=== PATIENT | male | born 1995 | race African-American/Black ===

== ENCOUNTER 2020-10-11 18:19 | Emergency (ER) | payer OTHER, SELFPAY ==
[2020-10-11 18:40] VITALS: BP 121/75; PULSE 79; RESP 15; TEMP 37; O2SAT 98; BMI 21.9
[2020-10-11 19:18] LABS: Add Manual Diff / Slide Review NO; Basophils Absolute Auto 0 /uL (0-100); Eosinophils Absolute Auto 100 /uL (0-450); Eosinophils Percent Auto 1.4 % (2-4); Hematocrit 45.1 % (41-53); Hemoglobin 15.1 g/dL (13.5-17.5); Lymphocytes Absolute Auto 1800 /uL (1100-4500); Lymphocytes Percent Auto 42.5 % (25-40); Mean Corpuscular HGB Conc 33.6 % (30-36); Mean Corpuscular Hemoglobin 29.2 PG (26-34); Mean Corpuscular Volume 86.9 fL (80-100); Monocytes Absolute Auto 200 /uL (0-900); Monocytes Percent Auto 5.2 % (3-14); Neutrophils Absolute Auto 2100 /uL (1500-7000); Neutrophils Percent Auto 49.9 % (50-75); Platelet Count 204 X10^3/uL (150-400); Red Blood Cell Count 5.19 X10^6/uL (4.5-5.9); Red Cell Distribution Width 12.9 % (11.6-14.8); White Blood Cell Count 4.2 X10^3/uL (4.5-11.0)
[2020-10-11 19:36] LABS: Acetaminophen < 10 ug/mL (10-30); Alanine Aminotransferase 17 IU/L (<50); Albumin 4.4 g/dL (3.5-5.0); Albumin Globulin Ratio 1.5 (1.0-2.8); Alkaline Phosphatase 57 U/L (38-126); Aspartate Aminotransferase 28 IU/L (17-59); Bilirubin Total 0.5 mg/dL (0.2-1.3); Blood Urea Nitrogen 14 mg/dL (9-20); Calcium 9.5 mg/dL (8.4-10.2); Carbon Dioxide 30 mmol/L (22-32); Chloride 101 mmol/L (98-107); Estimated Glomerular Filt Rate > 60.0 mL/min (>60); Ethanol (ETOH) < 10 mg/dL; Globulin 2.9 g/dL (1.7-4.1); Glucose 107 mg/dL (70-100); HEMOLYSIS < 15 (0-50); Potassium 3.4 mmol/L (3.4-5.1); Salicylate < 1.0 mg/dL (<20); Sodium 139 mmol/L (137-145); Total Protein 7.3 g/dL (6.3-8.2)
[2020-10-11 19:38] LABS: UR Morphine/Opiate cutoff 300 Negative (Negative); Ur Creatinine Normal (Normal); Ur Specific Gravity Normal (Normal); Urine Amphetamines Negative (Negative); Urine Barbiturates Negative (Negative); Urine Benzodiazepines Negative (Negative); Urine Cocaine Negative (Negative); Urine MDMA Negative (Negative); Urine Methadone Negative (Negative); Urine Methamphetamines Negative (Negative); Urine Oxycodone Negative (Negative); Urine Phencyclidine Negative (Negative); Urine Tetrahydrocannabinol Negative (Negative); Urine Tricyclic Antidepressant Negative (Negative); Urine pH Normal (Normal)
--- NOTE | 2020-10-11 19:54 | CM.SWNOTE ---
LOG INSPECTOR note LOG INSPECTOR consult requested for patient. 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 LOG INSPECTOR calls [facility] transfer center at [phone] to inquire about what is needed for transport. Staff at transfer center inform LOG INSPECTOR that patient will require medical clearance with related lab work, COVID result, and note [facility] mental health [facility]. Staff at [facility] inform LOG INSPECTOR that that an additional mental health assessment is not needed for transfer to [facility]. Staff at [facility] informs LOG INSPECTOR to fax these documents to , Attn: Transfer Center, once medical clearance is complete. LOG INSPECTOR informs ED Provider Dr. Byrnes and VANI Bourgeois of the above. Both indicate understanding. LOG INSPECTOR to place phone and fax for Ana in comments section of EMR for ease of access. Pl: IH staff to fax clinicals to [facility] once patient is medically clear. ERIKA Gregg
[2020-10-11 20:07] LABS: Free T4, Direct Thyroxine 1.18 ng/dL (0.78-2.19)
[2020-10-11 20:23] LABS: COVID19 -Nasal RAPID Negative (Negative)
--- NOTE | 2020-10-11 20:28 | ED.PSYCH ---
HPI - Psych General Chief Complaint: Psychiatric Symptoms Stated Complaint: BEHAVIORAL Time Seen by Provider: 10/11/20 19:55 Source: patient and other (Jones. Staff sgt from [facility] accompanying patient) Mode of arrival: Ambulatory Limitations: no limitations History of Present Illness HPI Narrative: This is a 25-year-old male who comes with complaint of suicidal ideation as well as thoughts of harming other individual. Patient states that his thoughts of harm to others are more specific to 1 particular person. Patient was sent from the [facility] for medical clearance. The I have been informed that they were supposed to be a bed available at [facility]. Patient has had some situational issues that are likely exacerbating his current situation he states he has not had suicidal ideation or thoughts of self-harm in the past. He currently does not wish to harm himself. He does not wish to harm anyone else at this moment but has had thoughts of pushing his LP 0 over board while on the care ear. Patient states he has seen physicians at the [facility] but has never had any prior psychiatric hospitalizations. He is not on any regular medications. He denies any other medical issues. No prior surgeries. Patient is originally from [facility]. He vapes tobacco. He describes occasional alcohol, the note that arrived with the patient states drinking 3 to 4 times a week 4-5 rum drinks, denies other illicit. He is accompanied by personal from the [facility] and patient appears comfortable in their presence. Related Data Allergies Allergy/AdvReac Type Severity Reaction Status Date / Time No Known Drug Allergies Allergy Verified 10/11/20 18:40 Review of Systems Review of Systems ROS Unobtainable: All systems reviewed & are unremarkable except as noted in HPI and below Patient History Social History Smoking Status: Current every day smoker Smoking Status: Current every day smoker tobacco type: vaping alcohol intake frequency: holidays/special occasions only Substance Use Type: does not use Exam Narrative Exam Narrative: GENERAL: Alert and oriented x three, thin, healthy-appearing male in mild distress HEENT: Head normocephalic, atraumatic, EOMI, pupils reactive, face symmetric, moist mucous membranes NECK: Supple, full range of motion CARDIOVASCULAR: Regular rate and rhythm without murmurs, rubs or gallops. RESPIRATORY: Breath sounds equal bilaterally, no wheezes rales or rhonchi. ABDOMEN: Soft, nontender. Normoactive bowel sounds all 4 quadrants. No guarding or rebound, rigidity, no mass : No CVA tenderness EXTREMITIES: Normal range of motion, no clubbing or edema. Neurovascularly intact NEUROLOGICAL: Cranial nerves II through XII grossly intact. Moving all extremities SKIN: Warm, dry, no petechiae, no rashes or lesions. PSYCH: Suicidal thoughts, no current intent. Homicidal thoughts particularly directed towards a single individual. Denies wish to harm others. Patient denies any hallucinations. Positive for depression. Initial Vital Signs Initial Vital Signs: Vital Signs Temperature 98.6 F 10/11/20 18:40 Pulse Rate 79 10/11/20 18:40 Respiratory Rate 15 10/11/20 18:40 Blood Pressure 121/75 10/11/20 18:40 Pulse Oximetry 98 10/11/20 18:40 Course Orders Ordered: ED Orders 10/11/20 18:53 Consult to SPECIAL EVENTS DIRECTOR - Labor Supervisor Stat 10/11/20 19:10 Acetaminophen Stat Complete Blood Count AUTO DIFF Stat Comprehensive Metabolic Panel Stat Ethanol (ETOH) Stat Free T4, Direct Thyroxine Stat Salicylate Stat Thyroid Stimulating Hormone Stat 10/11/20 19:18 Urinalysis and Microscopic Stat Urine Drug Screen, Rapid Stat 10/11/20 20:03 COVID19 -Nasal swab/Pre-Proc Stat Reevaluation(s) Time: 22:03 Consultations Consultation #1: Spoke with Dr. Mccullough. She accepts for transfer. They would ask that patient either trouble with 2 individuals via private auto or be transferred BLS ambulance if that is not available. Reviewed patient's findings, his note from his earlier evaluation today on the [employer] as well as his medical clearance and negative COVID. Time: 22:03 Vital Signs Vital signs: Vital Signs - 8 hr 10/11/20 22:26 Pulse Rate 72 Respiratory Rate 14 Blood Pressure 113/64 Pulse Oximetry 100 MDM - Psych Lab Data Attestation: I reviewed the patient's lab results. Result diagrams: 10/11/20 19:10 10/11/20 19:10 Labs: Lab Results 10/11/20 10/11/20 10/11/20 Range/Units 19:10 19:10 19:10 WBC 4.2 L (4.5-11.0) X10^3/uL RBC 5.19 (4.5-5.9) X10^6/uL Hgb 15.1 (13.5-17.5) g/dL Hct 45.1 (41-53) % MCV 86.9 (80-100) fL MCH 29.2 (26-34) PG MCHC 33.6 (30-36) % RDW 12.9 (11.6-14.8) % Plt Count 204 (150-400) X10^3/uL Neut % (Auto) 49.9 L (50-75) % Lymph % (Auto) 42.5 H (25-40) % [place] % (Auto) 5.2 (3-14) % Eos % (Auto) 1.4 L (2-4) % Baso % (Auto) 1.0 (0-2) % Neut # (Auto) 2100 (1509-2216) /uL Lymph # (Auto) 1800 (1854-0053) /uL [place] # (Auto) 200 (0-900) /uL Eos # (Auto) 100 (0-450) /uL Baso # (Auto) 0 (0-100) /uL Sodium 139 (137-145) mmol/L Potassium 3.4 (3.4-5.1) mmol/L Chloride 101 (98-107) mmol/L Carbon Dioxide 30 (22-32) mmol/L BUN 14 (9-20) mg/dL Creatinine 1.00 (0.66-1.25) mg/dL Estimated GFR > 60.0 (>60) mL/min BUN/Creatinine Ratio 14.0 (6-22) Glucose 107 H (70-100) mg/dL Calcium 9.5 (8.4-10.2) mg/dL Total Bilirubin 0.5 (0.2-1.3) mg/dL AST 28 (17-59) IU/L ALT 17 (<50) IU/L Alkaline Phosphatase 57 (38-126) U/L Total Protein 7.3 (6.3-8.2) g/dL Albumin 4.4 (3.5-5.0) g/dL Globulin 2.9 (1.7-4.1) g/dL Albumin/Globulin Ratio 1.5 (1.0-2.8) TSH 0.710 (0.47-4.68) uIU/mL Free T4 1.18 (0.78-2.19) ng/dL Urine Color Urine Appearance Urine pH (4.5-8.0) Ur Specific [place] (1.000-1.035) Urine Protein (Negative) Urine Glucose (UA) (Negative) g/dL Urine Ketones (NEGATIVE) Urine Occult Blood (Negative) Urine Nitrate (Negative) Urine Bilirubin (NEGATIVE) Urine Urobilinogen (0.2) E.U./dL Ur Leukocyte Esterase (NEGATIVE) Urine RBC (0-5/HPF) Urine WBC (0-5/HPF) Urine Bacteria (None) Ur Culture Indicated? Micro UA Comment Salicylates < 1.0 (<20) mg/dL U Opiates 300ng/mL cut (Negative) Ur Oxycodone Screen (Negative) Urine Methadone Screen (Negative) Acetaminophen < 10 L (10-30) ug/mL Ur Barbiturates Screen (Negative) U Tricyclic Antidepress (Negative) Ur Phencyclidine Scrn (Negative) Ur Amphetamines Screen (Negative) U Methamphetamines Scrn (Negative) Ur MDMA Scrn (Ecstasy) (Negative) U Benzodiazepines Scrn (Negative) Urine Cocaine Screen (Negative) U Marijuana (THC) Screen (Negative) Ethyl Alcohol < 10 ( - 10) mg/dL SARS-CoV-2 (PCR) (Negative) 10/11/20 10/11/20 10/11/20 Range/Units 19:18 19:18 20:03 WBC (4.5-11.0) X10^3/uL RBC (4.5-5.9) X10^6/uL Hgb (13.5-17.5) g/dL Hct (41-53) % MCV (80-100) fL MCH (26-34) PG MCHC (30-36) % RDW (11.6-14.8) % Plt Count (150-400) X10^3/uL Neut % (Auto) (50-75) % Lymph % (Auto) (25-40) % [place] % (Auto) (3-14) % Eos % (Auto) (2-4) % Baso % (Auto) (0-2) % Neut # (Auto) (3910-3737) /uL Lymph # (Auto) (7599-3126) /uL [place] # (Auto) (0-900) /uL Eos # (Auto) (0-450) /uL Baso # (Auto) (0-100) /uL Sodium (137-145) mmol/L Potassium (3.4-5.1) mmol/L Chloride (98-107) mmol/L Carbon Dioxide (22-32) mmol/L BUN (9-20) mg/dL Creatinine (0.66-1.25) mg/dL Estimated GFR (>60) mL/min BUN/Creatinine Ratio (6-22) Glucose (70-100) mg/dL Calcium (8.4-10.2) mg/dL Total Bilirubin (0.2-1.3) mg/dL AST (17-59) IU/L ALT (<50) IU/L Alkaline Phosphatase (38-126) U/L Total Protein (6.3-8.2) g/dL Albumin (3.5-5.0) g/dL Globulin (1.7-4.1) g/dL Albumin/Globulin Ratio (1.0-2.8) TSH (0.47-4.68) uIU/mL Free T4 (0.78-2.19) ng/dL Urine Color Yellow Urine Appearance Clear Urine pH 6.0 (4.5-8.0) Ur Specific [place] 1.020 (1.000-1.035) Urine Protein Negative (Negative) Urine Glucose (UA) Negative (Negative) g/dL Urine Ketones Negative (NEGATIVE) Urine Occult Blood Negative (Negative) Urine Nitrate Negative (Negative) Urine Bilirubin Negative (NEGATIVE) Urine Urobilinogen 0.2 (0.2) E.U./dL Ur Leukocyte Esterase Negative (NEGATIVE) Urine RBC None seen (0-5/HPF) Urine WBC None seen (0-5/HPF) Urine Bacteria None seen (None) Ur Culture Indicated? Cult not indicated Micro UA Comment Microscopic normal Salicylates (<20) mg/dL U Opiates 300ng/mL cut Negative (Negative) Ur Oxycodone Screen Negative (Negative) Urine Methadone Screen Negative (Negative) Acetaminophen (10-30) ug/mL Ur Barbiturates Screen Negative (Negative) U Tricyclic Antidepress Negative (Negative) Ur Phencyclidine Scrn Negative (Negative) Ur Amphetamines Screen Negative (Negative) U Methamphetamines Scrn Negative (Negative) Ur MDMA Scrn (Ecstasy) Negative (Negative) U Benzodiazepines Scrn Negative (Negative) Urine Cocaine Screen Negative (Negative) U Marijuana (THC) Screen Negative (Negative) Ethyl Alcohol ( - 10) mg/dL SARS-CoV-2 (PCR) Negative (Negative) MDM Narrative Medical decision making narrative: Patient has a mild leukocytosis, findings on lab works. COVID swab is negative. Rapid drug screen, EtOH, salicylate and acetaminophen level are negative. Patient at this time peers to be voluntary and interested in treatment with complaint of suicidal ideation and homicidal ideation towards a single individual. Discharge Plan Departure Patient Disposition: Xfer Psychiatric Hosp Clinical Impression: Depression with suicidal ideation Activity Restrictions/Additional Instructions: Go directly to [facility] facility. You have been accepted by Dr. Mccullough. Maintain suicide precautions.
[2020-10-11 21:51] LABS: Bacteria Urine None Seen; RBC Urine None Seen (0-5/HPF); WBC Urine None Seen (0-5/HPF)
[2020-10-11 22:01] LABS: Appearance Urine UA CLEAR; Bilirubin Urine UA NEGATIVE (NEGATIVE); Color Urine UA YELLOW; Glucose Urine UA NEGATIVE (Negative); Ketones Urine UA NEGATIVE (NEGATIVE); Leukocyte Esterase Urine UA NEGATIVE (NEGATIVE); Nitrite Urine UA NEGATIVE (Negative); Occult Blood Urine UA NEGATIVE (Negative); Protein Urine UA NEGATIVE (Negative); Urobilinogen Urine UA 0.2 E.U./dL (0.2)
[2020-10-11 22:11] LABS: Culture Indicated Urine Cult Not Indicated; Urine Comments Microscopic Normal
[2020-10-11 22:26] VITALS: BP 113/64; PULSE 72; RESP 14; O2SAT 100
== END 2020-10-11 22:29 ==
PROVIDERS: Emergency Provider Emergency Medicine
DX: F32.9 Major depressive disorder, single episode, unspecified (principal); R45.851 Suicidal ideations
CPT/HCPCS: 36415; 80053; 80305; 80320; 80329; 81001; 84439; 84443; 85025; 87635; 99284; C9803; G0480